=== PATIENT | male | born 1975 | race Asian ===

== ENCOUNTER 2021-09-30 07:08 | Outpatient (CLI) | payer OTHER ==
[2021-09-30 07:45] LABS: PLATELET COUNT 247 K/uL (142-355)
[2021-09-30 07:51] LABS: POTASSIUM 3.9 mmol/L (3.6-5.2); SODIUM 141 mmol/L (136-145)
== END 2021-09-30 19:18 | disposition home or self-care (01) ==
LOC: LABW 07:08
PROVIDERS: ATTEND Internal Medicine
DX: G62.9 Polyneuropathy, unspecified (principal); R73.9 Hyperglycemia, unspecified
CPT/HCPCS: 36415; 80053; 80061; 81002; 82951; 82952; 83036; 83735; 84439; 84443; 85027